=== PATIENT | female | born 1950 | race Caucasian/White ===

== ENCOUNTER 2016-05-22 10:37 | Outpatient (CLI) | payer OTHER | END 2016-05-22 10:38 | disposition home or self-care (01) | DX: Z12.31 Encounter for screening mammogram for malignant neoplasm of breast (principal) ==

== ENCOUNTER 2016-06-28 11:00 | Day surgery (SDC) | payer OTHER ==
[2016-06-28] MEDS ORDERED: LACTATED RINGERS 1,000 ML IV ONE (11:59)
[2016-06-28] MEDS ORDERED: fentaNYL 100 MCG/2 ML VIAL IVP ONE (12:58)
[2016-06-28] MEDS ORDERED: MIDAZOLAM 2 MG/2 ML VIAL IVP ONE (12:58)
== END 2016-06-28 11:01 | disposition home or self-care (01) ==
PROC: 0DBH8ZX Excision of Cecum, Via Natural or Artificial Opening Endoscopic, Diagnostic (ICD-10-PCS; principal; 2016-06-28 12:15)
DX: Z12.11 Encounter for screening for malignant neoplasm of colon (principal); D12.0 Benign neoplasm of cecum; K64.4 Residual hemorrhoidal skin tags; K64.8 Other hemorrhoids; I10 Essential (primary) hypertension; K21.9 Gastro-esophageal reflux disease without esophagitis; E78.5 Hyperlipidemia, unspecified; F32.9 Major depressive disorder, single episode, unspecified; F41.9 Anxiety disorder, unspecified; Z90.710 Acquired absence of both cervix and uterus; Z90.722 Acquired absence of ovaries, bilateral; Z90.79 Acquired absence of other genital organ(s); Z82.49 Family history of ischemic heart disease and other diseases of the circulatory system; Z80.9 Family history of malignant neoplasm, unspecified
CPT/HCPCS: 45380; J7120

== ENCOUNTER 2017-05-17 15:10 | Outpatient (CLI) | payer BC, OTHER | END 2017-05-17 15:11 | disposition home or self-care (01) | LOC: LAB.R 15:10 | PROVIDERS: ATTEND Family Medicine | DX: N39.0 Urinary tract infection, site not specified (principal) | CPT/HCPCS: 87086 ==

== ENCOUNTER 2018-07-01 19:33 | Emergency (ER) | payer BC, MEDICARE ==
[2018-07-01 19:48] VITALS: BP 175/83
--- NOTE | 2018-07-01 20:40 | XRAY Report ---
Reason: SOB, cough Procedure Date: 07/01/2018 Accession Number: [id number] / [id number] Procedure: XR - Chest 1 View X-Ray CPT Code: 59861 FULL RESULT: EXAM: CHEST RADIOGRAPHY EXAM DATE: 07/01/2018 08:25 PM. CLINICAL HISTORY: SOB, cough. COMPARISON: CHEST 2 VIEW PA/LAT 02/09/2015 9:40 AM. TECHNIQUE: 1 view. FINDINGS: Lungs/Pleura: Faint bilateral perihilar opacities noted. In acute settings, differentials include acute hypersensitivity pneumonitis, viral/interstitial pneumonia. Further evolution can be considered on a noncontrast chest CT if clinically indicated Mediastinum: Within exam limitations, the cardiomediastinal contour is normal. Other: None. IMPRESSION: Faint bilateral perihilar opacities. In acute settings, differentials include acute hypersensitivity pneumonitis, viral/interstitial pneumonia. Further evolution can be considered on a noncontrast chest CT if clinically indicated. RADIA
[2018-07-01] MEDS ORDERED: IPRATROPIUM/ALBUTEROL 3 ML NEB INH STA (21:04)
[2018-07-01] MEDS ORDERED: DOXYCYCLINE 100 MG TABLET PO STA (21:04)
--- NOTE | 2018-07-01 21:06 | ED Physician Documentation ---
History of Present Illness - Stated complaint Stated Complaint: COUGHING,SOA - Chief complaint Chief Complaint: Resp - History obtained from History obtained from: Patient, Family - History of Present Illness Timing: How many days ago (2) Severity Comments: moderate cough Quality: cough, purulent green sputum Radiates to: does not Improved by: nothing Worsened by: deep breathing Associated symptoms: runny nose, congestion, sore throat. Denies fever, denies chest pain Review of Systems Unable to obtain: Uncooperative Ten Systems: 10 systems reviewed and negative Constitutional: denies: Fever, Chills Ears: denies: Ear pain Nose: denies: Rhinorrhea / runny nose, Congestion Throat: reports: Sore throat Cardiac: denies: Chest pain / pressure, Palpitations Respiratory: reports: Dyspnea, Cough, Wheezing. denies: Hemoptysis GI: denies: Abdominal Pain, Nausea, Vomiting Skin: denies: Rash Musculoskeletal: denies: Extremity pain, Extremity swelling Neurologic: reports: Reviewed and negative PD PAST MEDICAL HISTORY - Past Medical History Past Medical History: Yes Cardiovascular: Hypertension, Other Respiratory: Pneumonia Endocrine/Autoimmune: None GI: None : None HEENT: None Psych: None Musculoskeletal: Fibromyalgia Derm: None - Past Surgical History Past Surgical History: Yes General: Appendectomy /FORM BLOCK [employer]ER: Hysterectomy, Oophrectomy - Present Medications Home Medications: Ambulatory Orders Medication Instructions Recorded Confirmed Escitalopram Oxalate [Lexapro] 10 mg PO DAILY 09/11/12 07/01/18 Lisinopril/Hydrochlorothiazide 1 each PO DAILY 09/11/12 07/01/18 [Lisinopril-Hctz 20-25 mg Tab] Metoprolol Succinate [Toprol Xl] 50 mg PO DAILY 09/11/12 07/01/18 Pravastatin Sodium [Pravachol] 20 mg PO DAILY 09/11/12 07/01/18 RX: Albuterol Sulf [Ventolin Hfa 1 - 2 puffs INH Q4HR PRN #1 inhaler 07/01/18 Inhaler] RX: Azithromycin [Zithromax] 0 mg PO DAILY #6 tablet 07/01/18 - Allergies Allergies/Adverse Reactions: Allergies Allergy/AdvReac Type Severity Reaction Status Date / Time No Known Drug Allergies Allergy Verified 07/01/18 19:41 - Social History Does the pt smoke?: Yes Smoking Status: Current every day smoker Does the pt drink ETOH?: Yes Does the pt have substance abuse?: No - Immunizations Immunizations are current?: Yes - POLST Patient has POLST: No PD ED PE NORMAL - Vitals Vital signs reviewed: Yes - General General: Alert and oriented X 3 - HEENT HEENT: Atraumatic - Neck Neck: Supple, no meningeal sign, No JVD - Cardiac Cardiac: RRR (mild tachycardia), No murmur, No gallop, No rub - Respiratory Respiratory: Other (wheezing with expiration, bilaterally ) - Abdomen Abdomen: Soft, Non tender, Non distended - Female Female : Deferred - Rectal Rectal: Deferred - Derm Derm: Normal color, Warm and dry, No rash - Extremities Extremities: No tenderness to palpate, No edema, No calf tenderness / cord - Neuro Neuro: Alert and oriented X 3 Eye Opening: Spontaneous Motor: Obeys Commands Verbal: Oriented GCS Score: 15 - Psych Psych: Normal mood Results - Vitals Vitals: Vital Signs - 24 hr 07/01/18 07/01/18 07/01/18 19:37 20:04 21:22 Temperature 35.7 C L Heart Rate 110 H 102 H 92 Respiratory 26 H 26 H 22 Rate Blood Pressure 175/83 H O2 Saturation 96 96 07/01/18 22:00 Temperature Heart Rate Respiratory 17 Rate Blood Pressure O2 Saturation Oxygen O2 Source Room air - Rads (name of study) No standard instances Radiology: Final report received PD MEDICAL DECISION MAKING - ED course Complexity details: reviewed old records, reviewed results, re-evaluated patient, considered differential, d/w patient, d/w family ED course: DDx - CHF, pneumonia, emphysema, asthma, URI, bronchitis,PE 68 y/o F with cough, wheezing sob for 3 days. Improved here with duoneb, saturating well. Pt otherwise well appearing Symptoms infectious and not c/w CHF, PE. CXR c/w possible viral or bacterial bronchitis. WIll give antibiotics and refill inhaler script. Pt stable for discharge Departure - Departure Disposition: 01 Home, Self Care Clinical Impression: Bronchitis Condition: Fair Record reviewed to determine appropriate education?: Yes Instructions: ED Bronchitis Asthmatic Follow-Up: Ziyad Bailey DO [Primary Care Provider] - As Needed Prescriptions: RX: Albuterol Sulf [Ventolin Hfa Inhaler] 1 - 2 puffs INH Q4HR PRN #1 inhaler PRN Reason: Shortness Of Air/Wheezing RX: Azithromycin [Zithromax] 0 mg PO DAILY #6 tablet Discharge Date/Time: 07/01/18 22:15
[2018-07-01] MEDS ORDERED: IBUPROFEN 600 MG TABLET PO STA (21:59)
== END 2018-07-01 22:15 | disposition home or self-care (01) ==
LOC: ED 19:33
DX: J40 Bronchitis, not specified as acute or chronic (principal); I10 Essential (primary) hypertension; F17.200 Nicotine dependence, unspecified, uncomplicated
CPT/HCPCS: 71045; 94640; 99283; A9270

== ENCOUNTER 2020-11-29 15:08 | Outpatient (CLI) | payer BC, MEDICARE | END 2020-11-29 23:59 | LOC: LAB.N 15:08 | PROVIDERS: ATTEND Family Medicine | DX: R05.9 Cough, unspecified (principal); Z20.822 Contact with and (suspected) exposure to COVID-19 | CPT/HCPCS: 87275; 87276 ==

== ENCOUNTER 2021-02-27 15:03 | Outpatient (CLI) | payer OTHER, MEDICARE ==
--- NOTE | 2021-02-28 17:27 | Mammography Report ---
BILATERAL DIGITAL SCREENING MAMMOGRAM 3D/2D: 02/27/2021 CLINICAL: Routine screening. Comparison is made to exams dated: 05/22/2016 mammogram and 02/09/2015 mammogram - [facility]. The tissue of both breasts is heterogeneously dense. This may lower the sensitivity of ma mmography. No significant masses, calcifications, or other findings are seen in either breast. There has been no significant interval change. IMPRESSION: NEGATIVE There is no mammographic evidence of malignancy. A 1 year screening mammogram is recommended. This exam was interpreted at Station ID: [id number]. NOTE: For mammograms, a report in lay terms will be sent to the patient. Approximately 15% of breast malignancies will not be visualized mammographically. In the management of a palpable breast mass, a negative mammogram must not discourage biopsy of a clinically suspicious lesion. Electronically Signed By: Malick Weeks M.D. slc/penrad:02/27/2021 17:02:15 ACR BI-RADS Category 1: Negative [id number] PARENCHYMAL PATTERN: (D) - The breast(s) demonstrate(s) heterogeneously dense fibroglandular parenchy ma. BI-RADS CATEGORY: (1) - 1 RECOMMENDATION: (ANNUAL) - Recommend routine annual screening mammography. [id number] 1 year screening LATERALITY: (B)
== END 2021-02-27 15:04 | disposition home or self-care (01) ==
LOC: DI.N 15:03
DX: Z12.31 Encounter for screening mammogram for malignant neoplasm of breast (principal)